=== PATIENT | male | born 1950 | race Caucasian/White ===

== ENCOUNTER → 2016-09-15 | Outpatient (CLI) | payer BC ==
[2016-09-15 12:30] LABS: BASOPHILS # (AUTO) 0.09 10*3/UL; BASOPHILS % (AUTO) 1.3 % (0-1); EOSINOPHILS % (AUTO) 2.6 % (0-8); HEMATOCRIT 43.9 % (42.0-52.0); HEMOGLOBIN 14.9 g/dL (14.0-18.0); IMM GRAN % (AUTO) 0.3 % (0-5); IMM GRAN# (AUTO) 0.02 10*3/UL; LYMPHOCYTES # (AUTO) 1.72 10*3/uL; LYMPHOCYTES % (AUTO) 25.3 % (10-50); MEAN CORPUSCULAR HEMOGLOBIN 31.6 PG (27-31); MEAN CORPUSCULAR HGB CONC 33.9 g/dL (33-37); MEAN PLATELET VOLUME 9.7 FL (7.4-12.2); MONOCYTES # (AUTO) 0.76 10*3/UL (0.3-0.8); MONOCYTES % (AUTO) 11.2 % (5-15); NEUTROPHILS # (AUTO) 4.04 10*3/UL; NEUTROPHILS % (AUTO) 59.3 % (50-80); RDW COEFFICIENT OF VARIATION 13.3 % (11.5-14.5); RED BLOOD COUNT 4.71 10^6/uL (4.70-6.10); WHITE BLOOD COUNT 6.81 10^3/uL (4.8-10.8)
[2016-09-15 12:36] LABS: PLATELET MORPHOLOGY COMMENT NORMAL MORPHOLOGY (NORM)
[2016-09-15 12:55] LABS: ASPARTATE AMINO TRANSFERASE 31 IU/L (21-57); BLOOD UREA NITROGEN 17 mg/dL (7-22); CALCIUM 9.8 mg/dL (8.7-10.7); CHLORIDE 102 meq/L (98-112); EST GLOMERULAR FILTRATION > 60 (>60 ml/min/1.73m(2)); GLUCOSE 84 mg/dL (78-110); HDL CHOLESTEROL 81 mg/dL (40-150); POTASSIUM 4.8 meq/L (3.8-5.2); SODIUM 140 meq/L (135-145); TOTAL PROTEIN 7.4 g/dL (6.1-8.0); TRIGLYCERIDES 58 mg/dL (44-200)
[2016-09-15 12:58] LABS: HIV ANTIBODY NEGATIVE (N); HIV-1 P24 ANTIGEN NEGATIVE (N)
[2016-09-15 13:12] LABS: FREE T4 (FREE THYROXINE) 1.54 ng/dL (0.93-1.71)
[2016-09-15 14:28] LABS: ERYTHROCYTE SEDIMENTATION RATE 2 MM/HR (0-15)
[2016-09-16 10:03] LABS: HEP B CORE IGM ANTIBODY Negative (Negative); HEPATITIS B SURFACE AG Negative (Negative)
[2016-09-16 10:18] LABS: HEPATITIS C ANTIBODY SCREEN Negative (Negative)
[2016-09-16 14:52] LABS: SYPHILIS IGG WITH REFLEX Negative (Negative)
== END ==
LOC: LAB 11:55
PROVIDERS: ATTEND Family Medicine
DX: N45.1 Epididymitis (principal); E89.0 Postprocedural hypothyroidism; I10 Essential (primary) hypertension; N41.1 Chronic prostatitis; K57.30 Diverticulosis of large intestine without perforation or abscess without bleeding; F17.210 Nicotine dependence, cigarettes, uncomplicated
CPT/HCPCS: 36415; 80053; 80061; 84439; 84443; 85025; 85652; 86703; 86705; 86709; 86780; 86803; 87340; 87491; 87591

== ENCOUNTER → 2017-02-27 | Outpatient (CLI) | payer BC ==
--- NOTE | 2017-02-27 17:14 | DI ---
RIGHT TIBIA AND FIBULA, 02/27/2017 4:53 PM: Clinical History: Pain in the right tibia. Previous Exam: None at this facility. AP and lateral views are submitted. There is no acute soft tissue, osseous, or joint abnormality. Reading: Normal right tibia and fibula exam.
== END ==
LOC: MOB RAD 16:55
PROVIDERS: ATTEND Physician Assistant
DX: M79.604 Pain in right leg (principal); F17.200 Nicotine dependence, unspecified, uncomplicated
CPT/HCPCS: 73590